=== PATIENT | female | born 2000 ===

== ENCOUNTER → 2024-12-24 | Day surgery (SDC) | payer OTHER ==
[~2024-12-24] VITALS: Ht 160 cm; Wt 69.4 kg
[~2024-12-24] MED LIST: ACETAMINOPHEN 100 ML IV ONE; Bacitracin Zinc/Neomycin/Pol 0.9 GM PACKET T ONE; Bupivacaine Hydrochloride/Ep2 30 ML VIAL ONE; CITALOPRAM10 MG PO; Dexamethasone Sodium Phospha 4 MG/ML VIAL IV ONE; ECHINACEA65 MG PO; Ketamine Hydrochloride 500 MG/10 ML VIAL IV ONE; Lactated Ringer's Solution 1,000 ML IV ONE; Lidocaine Hydrochloride 5 ML VIAL IV ONE; MAGNESIUM SULFATE 1 GM/2 ML VIAL IV ONE; MORPHINE Sulfate 2 MG/ML SYR IV PRN; MORPHINE Sulfate 2 MG/ML SYR ONE; Ondansetron Hydrochloride 4 MG/2 ML VIAL IV ONE; PROPOFOL 200 MG/20 ML VIAL IV ONE; ROCURONIUM BROMIDE 50 MG/5 ML SYRINGE IV ONE; SEVOFLURANE 250 ML BOT INH ONE; SUGAMMADEX SODIUM 200 MG/2 ML VIAL IV ONE
[2024-12-24 06:49] VITALS: BP 107/70
[2024-12-24 08:34] VITALS: BP 111/57
[2024-12-24 08:49] VITALS: BP 129/80
[2024-12-24 09:04] VITALS: BP 120/73
[2024-12-24 09:19] VITALS: BP 131/77
[2024-12-24 09:34] VITALS: BP 132/78
== END | disposition home or self-care (01) ==
LOC: SDC 12-20 09:30
PROVIDERS: ATTEND Dentist General Practice
DX: K02.9 Dental caries, unspecified (principal); F41.9 Anxiety disorder, unspecified; F32.A Depression, unspecified; G43.909 Migraine, unspecified, not intractable, without status migrainosus; F43.10 Post-traumatic stress disorder, unspecified; F17.290 Nicotine dependence, other tobacco product, uncomplicated; Z79.899 Other long term (current) drug therapy